=== PATIENT | male | born 1990 | race American Indian/Alaskan Native ===

== ENCOUNTER 2016-09-08 17:46 | Emergency (ER) | payer MEDICAID, OTHER ==
--- NOTE | 2016-09-08 18:35 | Emergency Department Report ---
Chief Complaint: Eye Problems Stated Complaint: LEFT EYE INJURY Time Seen by Provider: 09/08/16 18:32 - HPI History of Present Illness: pt states he was hit in L eye while at work yesterday. PT states today he is having eye redness - ROS Review of Systems: + eye pain + left eye lid edema - Exam Physical Exam: pt looks well, non toxic L eye injected MSE screening note: Focused history and physical exam performed. Due to findings the following was ordered: eye set up ED Disposition for MSE Condition: Stable
[2016-09-08 18:38] VITALS: BP 115/75
[2016-09-08] MEDS: TETRACAINE 0.5% OS STA (19:53)
[2016-09-08] MEDS: FUL-GLO OP ONE (19:53)
--- NOTE | 2016-09-08 20:08 | Emergency Department Report ---
ED Eye Problem HPI - General Chief complaint: Eye Problems Stated complaint: LEFT EYE INJURY Time Seen by Provider: 09/08/16 18:32 Source: patient Mode of arrival: Ambulatory Limitations: No Limitations - History of Present Illness Initial comments: This is a 25-year-old male that presents with left eye pain and blurred vision. Patient states that he hit his left eye while at work yesterday. Patient works in shipping toilets. Patient stated he was preparing a Box for a shipment and the corner of the box hit his left eye. Patient states pain is a 10 out of 10. Patient states that his eye is red and irritated. Patient denies any pus or drainage. Patient stated after the incident he washed his eye with normal saline flush. Patient denies any visual acuity. Patient denies any drug allergies. He seems well-nourished and nontoxic appearance. chief complaint: eye pain, eye redness, eye injury -: Sudden, days(s) (1) Onset Description: sudden Location: left eye Place: work If Injury: direct trauma Eye Symptoms: burning, redness, pain Severity: severe Severity scale (0 -10): 10 If Pain, Quality: sharp, burning, aching Consistency: constant Associated Symptoms: denies: headache, neck pain, nausea/vomiting, cough, rhinorrhea, fever, shortness of breath - Related Data Previous Rx's Medication Instructions Recorded Last Taken Type Ciprofloxacin HCl [Cipro] 500 mg PO BID #20 tablet 09/09/13 Unknown Rx HYDROcodone/APAP 5-325 [Sylvester 1 each PO Q6HR PRN #14 tablet 09/09/13 Unknown Rx 5/325 mg] Gentamicin 0.3% Ophth Soln 2 drops OP Q4H #1 bottle 09/08/16 Unknown Rx Tetracaine 0.5% [Tetravisc Forte 1 each OP Q5MIN PRN #1 drpr.hpvis 09/08/16 Unknown Rx 0.5%] Allergies Allergy/AdvReac Type Severity Reaction Status Date / Time coulter Allergy Swelling Uncoded 09/09/13 17:55 ED Review of Systems ROS: Stated complaint: LEFT EYE INJURY Other details as noted in HPI Constitutional: denies: chills, fever Eyes: eye pain (left eye). denies: eye discharge, vision change ENT: denies: ear pain, throat pain Respiratory: denies: cough, shortness of breath, wheezing Cardiovascular: denies: chest pain, palpitations Endocrine: no symptoms reported Gastrointestinal: denies: abdominal pain, nausea, diarrhea Genitourinary: denies: urgency, dysuria Musculoskeletal: denies: back pain, joint swelling, arthralgia Skin: denies: rash, lesions Neurological: denies: headache, weakness, paresthesias Psychiatric: denies: anxiety, depression Hematological/Lymphatic: denies: easy bleeding, easy bruising ED Past Medical Hx - Past Medical History Previous Medical History?: No - Surgical History Past Surgical History?: No - Social History Smoking Status: Current Some Day Smoker Substance Use Type: None - Medications Home Medications: Home Medications Medication Instructions Recorded Confirmed Last Taken Type Ciprofloxacin HCl [Cipro] 500 mg PO BID #20 tablet 09/09/13 Unknown Rx HYDROcodone/APAP 5-325 [Sylvester 1 each PO Q6HR PRN #14 tablet 09/09/13 Unknown Rx 5/325 mg] Gentamicin 0.3% Ophth Soln 2 drops OP Q4H #1 bottle 09/08/16 Unknown Rx Tetracaine 0.5% [Tetravisc Forte 1 each OP Q5MIN PRN #1 drpr.hpvis 09/08/16 Unknown Rx 0.5%] ED Physical Exam - General Limitations: No Limitations General appearance: alert, in no apparent distress - Head Head exam: Present: atraumatic, normocephalic - Eye Eye exam: Present: normal appearance, PERRL, EOMI. Absent: scleral icterus, conjunctival injection, nystagmus, periorbital swelling, periorbital tenderness Pupils: Present: normal accommodation - Expanded Eye Exam Expanded Eyelids: Normal Inspection: Left Pupils: Regular, Round: Left, Reactive: Left Sclera/Conjunctival: Normal Inspection: Left Posterior chamber: Normal Inspection: Left Visual acuity (R) = 20/: 40 (PT AWARE OF NEEDING GLASSES) Visual acuity (L) = 20/: 25 (PT AWARE OF NEEDING GLASSES) With correction: No - ENT ENT exam: Present: mucous membranes moist - Neck Neck exam: Present: normal inspection - Respiratory Respiratory exam: Present: normal lung sounds bilaterally. Absent: respiratory distress - Cardiovascular Cardiovascular Exam: Present: regular rate, normal rhythm. Absent: systolic murmur, diastolic murmur, rubs, gallop - GI/Abdominal GI/Abdominal exam: Present: soft, normal bowel sounds - Rectal Rectal exam: Present: deferred - Extremities Exam Extremities exam: Present: normal inspection - Back Exam Back exam: Present: normal inspection - Neurological Exam Neurological exam: Present: alert, oriented X3 - Psychiatric Psychiatric exam: Present: normal affect, normal mood - Skin Skin exam: Present: warm, dry, intact, normal color. Absent: rash ED Course Vital Signs 09/08/16 09/08/16 09/08/16 18:35 20:33 20:54 Temperature 98.1 F Pulse Rate 92 H 82 Respiratory 20 20 18 Rate Blood Pressure 115/75 O2 Sat by Pulse 100 Oximetry Vital Signs 09/08/16 09/08/16 18:35 20:33 Temperature 98.1 F Pulse Rate 92 H Respiratory 20 20 Rate Blood Pressure 115/75 O2 Sat by Pulse 100 Oximetry Vital Signs 09/08/16 09/08/16 09/08/16 18:35 20:33 20:54 Temperature 98.1 F Pulse Rate 92 H 82 Respiratory 20 20 18 Rate Blood Pressure 115/75 O2 Sat by Pulse 100 Oximetry - Procedure Description Procedures done: Exam using Boyer lamp. I used tetracaine 0.5% to affected eye with fluorescein strip. Under expected and I noticed patient has corneal abrasion. ED Medical Decision Making - Medical Decision Making ED course: 25-year-old male that presents with left corneal abrasion. 1- under Boyer lamp: Patient has left corneal abrasion. 2- cardinal IM given in the ER. 3- visual acuity tested. 4- I instructed the patient of the corneal abrasion. I instructed patient to follow-up with an hat steamer as soon as possible. 5- at the time of discharge the patient does not seem toxic or ill appearance. No signs of any distress. No further questions noted from the patient. 6- patient discharged with tetracaine ophthalmic solution 0.5 % and Cipro ophthalmic. Critical care attestation.: If time is entered above; I have spent that time in minutes in the direct care of this critically ill patient, excluding procedure time. ED Disposition Clinical Impression: Corneal abrasion Qualifiers: Encounter type: initial encounter Laterality: left Qualified Code(s): S05.02XA - Injury of conjunctiva and corneal abrasion without foreign body, left eye, initial encounter Disposition: DISCHARGED TO HOME OR SELFCARE Is pt being admited?: No Does the pt Need Aspirin: No Condition: Stable Instructions: Corneal Abrasion (ED) Additional Instructions: Follow-up with the hat steamer as soon as possible. If symptoms worsens report back to emergency room. Take medications as prescribed. Prescriptions: Tetracaine 0.5% [Tetravisc Forte 0.5%] 1 each OP Q5MIN PRN #1 drpr.hpvis PRN Reason: Pain Gentamicin 0.3% Ophth Soln 2 drops OP Q4H #1 bottle Referrals: PRIMARY CARE, [Primary Care Provider] - 3-5 Days JUSTIN DYE MD [Staff Physician] - [facility]
[2016-09-08] MEDS: TORADOL IM ONE (20:33)
== END 2016-09-08 21:05 | disposition home or self-care (01) ==
LOC: ED 17:46
DX: S05.02XA Injury of conjunctiva and corneal abrasion without foreign body, left eye, initial encounter (principal); F17.200 Nicotine dependence, unspecified, uncomplicated; Z91.018 Allergy to other foods; W22.8XXA Striking against or struck by other objects, initial encounter; Y93.89 Activity, other specified; Y99.0 Civilian activity done for income or pay; Y92.89 Other specified places as the place of occurrence of the external cause
CPT/HCPCS: 96372; 99283; J1885

== ENCOUNTER 2016-12-07 12:25 | Emergency (ER) | payer SELFPAY ==
[2016-12-07] MEDS ORDERED: TRIPLE ANTIBIOTIC TP ONE (18:25)
[2016-12-07 21:55] VITALS: BP 137/87
--- NOTE | 2016-12-07 22:03 | Emergency Department Report ---
Entered by TOMMY RAMOS, acting as scribe for CELESTINO BE NP. Abscess Boil HPI - HPI Chief Complaint: Skin/Abscess/Foreign Body Stated Complaint: POSSIBLE STAPH INFECTION Time Seen by Provider: 12/07/16 17:07 Duration: >1 Week (2) Location: Lower Extremity Severity: Moderate History: Yes Pain, Yes Purulent Drainage, No Fever, No Numbness, No Foreign Body , No Previous History, No Insect Bite HPI: This is a 26 year old male, nontoxic, well nourished in appearance, no acute signs of distress presents with open wound on left butt cheek for 2 weeks. Patient reports that he was sitting on the toilet when he noticed the symptoms worsened. Patient reports pus/drainage, but denies erythema, boil, chills, chest pain, SOB, numbness, or tingling. Patient denies chest pain, fever , chills, headache, stiff neck. NKDA. Denies PMH. Home Medications: Previous Rx's Medication Instructions Recorded Last Taken Type Ciprofloxacin HCl [Cipro] 500 mg PO BID #20 tablet 09/09/13 Unknown Rx HYDROcodone/APAP 5-325 [[place] 1 each PO Q6HR PRN #14 tablet 09/09/13 Unknown Rx 5/325 mg] Gentamicin 0.3% Ophth Soln 2 drops OP Q4H #1 bottle 09/08/16 Unknown Rx Tetracaine 0.5% [Tetravisc Forte 1 each OP Q5MIN PRN #1 drpr.hpvis 09/08/16 Unknown Rx 0.5%] Clindamycin [Clindamycin CAP] 450 mg PO Q8HR 7 Days 12/07/16 Unknown Rx Allergies/Adverse Reactions: Allergies Allergy/AdvReac Type Severity Reaction Status Date / Time coulter Allergy Swelling Uncoded 09/09/13 17:55 ED Review of Systems ROS: Stated complaint: POSSIBLE STAPH INFECTION Other details as noted in HPI Comment: All other systems reviewed and negative Constitutional: denies: chills, fever Eyes: denies: eye pain, eye discharge, vision change ENT: denies: ear pain, throat pain Respiratory: denies: cough, shortness of breath, wheezing Cardiovascular: denies: chest pain, palpitations Endocrine: no symptoms reported Gastrointestinal: denies: abdominal pain, nausea, diarrhea Genitourinary: denies: urgency, dysuria Musculoskeletal: denies: back pain, joint swelling, arthralgia Skin: denies: rash, lesions Neurological: denies: headache, weakness, paresthesias Psychiatric: denies: anxiety, depression Hematological/Lymphatic: denies: easy bleeding, easy bruising ED Past Medical Hx - Past Medical History Previous Medical History?: No - Social History Smoking Status: Current Some Day Smoker Substance Use Type: None - Medications Home Medications: Home Medications Medication Instructions Recorded Confirmed Last Taken Type Ciprofloxacin HCl [Cipro] 500 mg PO BID #20 tablet 09/09/13 Unknown Rx HYDROcodone/APAP 5-325 [[place] 1 each PO Q6HR PRN #14 tablet 09/09/13 Unknown Rx 5/325 mg] Gentamicin 0.3% Ophth Soln 2 drops OP Q4H #1 bottle 09/08/16 Unknown Rx Tetracaine 0.5% [Tetravisc Forte 1 each OP Q5MIN PRN #1 drpr.hpvis 09/08/16 Unknown Rx 0.5%] Clindamycin [Clindamycin CAP] 450 mg PO Q8HR 7 Days 12/07/16 Unknown Rx ED Abscess Boil Physical Exam - Exam General: Vital signs noted. No distress. Alert and acting appropriately. GENERAL: The patient is a well-developed, well-nourished female in no apparent distress. Patient is alert and acting appropriately for age. Alert and oriented 3, no apparent distress, normal gait, atraumatic. HEENT: Head is normocephalic and atraumatic. PERRL, Extraocular muscles are intact. Pupils are equal, round, and reactive to light and accommodation. Nares appeared normal. Mouth is well hydrated and without lesions. Mucous membranes are moist. Posterior pharynx clear of any exudate or lesions. Mouth is well hydrated and without lesions. Tonsils not erythematous or swollen. Uvula midline. Tongue elevated. Mucous members are moist. Posterior pharynx clear, no exudate or lesions. Patent airways. NECK: Supple. No carotid bruits. No lymphadenopathy or thyromegaly.nontender. No meningitic signs are noted. LUNGS: Clear to auscultation. Non labor breathing. No intercostal retractions. Symmetrical with respiration, no wheezing, no rales, or crackles. HEART: Regular rate and rhythm without murmur, rubs or gallops. No reproducible. S1, S2 present, regular rate and rhythm without murmur, no rubs, no gallops. ABDOMEN: Soft, nontender, and nondistended. Positive bowel sounds. No hepatosplenomegaly was noted. No guarding or rebound tenderness, negative epigastric bruit. Negative psoas sign, negative sahu sign, negative McBurneys sign EXTREMITIES: Without any cyanosis, clubbing, rash, lesions or edema. Peripheral pulses intact. Capillary refill less than 2 seconds. Full range of motion bilaterally. NEUROLOGIC: Cranial nerves II through XII are grossly intact. Alert and oriented x 3. Normal gait. Symmetrical strength and sensation. Reflexes 2+ throughout. Cerebellar testing normal. GCS score of 15. PSYCHIATRIC: Normal affect with no suicidal or homicidal ideations. Skin: 1cm x1 cm circular open wound with purulent drainage. No fluctuance present. No swelling. No surrounding cellulitis. No erythema. No ulcer. Front/Back of Body, Lg (Color): 1 - 1cm open round purulent drainage Size: 1 cm (1cm open round purulent drainage) Exam: Yes Tenderness, Yes Normal Neurologic Exam, Yes Normal Circulation, No Fluctuance, No Surrounding Cellulites/Erythema, No Lymphangitis, No Crepitation , No Heart Murmur Exam: 1cm open round purulent drainage ED Course Vital Signs 12/07/16 12:40 Temperature 97.4 F L Pulse Rate 82 Respiratory 16 Rate Blood Pressure 129/90 O2 Sat by Pulse 100 Oximetry - Reevaluation(s) Reevaluation #1: 12/07/16 18:23 Patient is speaking in full sentences with no signs of distress. Critical care attestation.: If time is entered above; I have spent that time in minutes in the direct care of this critically ill patient, excluding procedure time. ED Medical Decision Making - Medical Decision Making Ed course: This is a 26-year old male that presents with purulent open wound 1- patient was examined myself. I/D has been performed due to wound open with purulent drainage and no fluctuance present. 2- triple antibiotics ointment placed with 4 x 4 and tape at the time of discharge. 3- patient received clindamycin 7 days at discharge. 4- area has been marked with a permanent marker and patient was instructed to Follow-up with your primary care doctor in 3-5 days and observe symptoms and signs passing the permanent marked region and if increasing swelling, redness, pus, drainage, fever, chills, nausea, vomiting, chest pain or shortness of breath and return to emergency room if symptoms are present as soon as possible. 5- at time time of discharge, the patient does not seem toxic or ill in appearance. No acute signs of distress noted. Patient agrees to discharge treatment plan of care. No further questions noted by the patient. ED Disposition Clinical Impression: Open wound Disposition: DC-01 TO HOME OR SELFCARE Is pt being admited?: No Does the pt Need Aspirin: No Condition: Stable Instructions: Clindamycin (By mouth), Acute Wound Care (ED) Additional Instructions: Follow-up with your primary care doctor in 3-5 days and observe symptoms and signs passing the permanent marked region and if increasing swelling, redness, pus, drainage, fever, chills, nausea, vomiting, chest pain or shortness of breath and return to emergency room if symptoms are present as soon as possible. Take antibiotics as prescribed Keep area clean and dry. Prescriptions: Clindamycin [Clindamycin CAP] 450 mg PO Q8HR 7 Days Referrals: PRIMARY CAREMD [Primary Care Provider] - 3-5 Days GABE HUITRON JR, MD [Staff Physician] - 3-5 Days [facility] [Outside] - 3-5 Days [facility] [Outside] - 3-5 Days Forms: Work/School Release Form(ED) This documentation as recorded by the RICHARD avalos PEARL,accurately reflects the service I personally performed and the decisions made by ,CELESTINO BE, JOHNNIE.
== END 2016-12-07 21:55 | disposition home or self-care (01) ==
LOC: ED 12:25
DX: S31.829A Unspecified open wound of left buttock, initial encounter (principal); F17.200 Nicotine dependence, unspecified, uncomplicated; Z91.018 Allergy to other foods
CPT/HCPCS: 99282; 99283; A6250

== ENCOUNTER 2020-03-06 18:20 | Emergency (ER) | payer SELFPAY ==
--- NOTE | 2020-03-06 19:04 | XRay Report ---
CHEST 2 VIEWS INDICATION: MAIN. COMPARISON: None FINDINGS: SUPPORT DEVICES: None. HEART: Within normal limits. LUNGS/PLEURA: No acute air space or interstitial disease. No pneumothorax. ADDITIONAL FINDINGS: None. IMPRESSION: 1. No acute findings. Signer Name: Laith Kemp MD Signed: 03/06/2020 7:00 PM Workstation Name: [id number]
[2020-03-06 19:57] LABS: Alanine Aminotransferase 27 units/L (7-56); Albumin 4.5 g/dL (3.9-5); BUN/Creatinine Ratio 12; Blood Urea Nitrogen 11 mg/dL (9-20); Calcium 9.4 mg/dL (8.4-10.2); Hemolysis Index 10
[2020-03-06 20:05] LABS: Basophils % (Auto) 0.2 % (0.0-1.8); Eosinophils # (Auto) 0.5 K/mm3 (0.0-0.4); Eosinophils % (Auto) 2.8 % (0.0-4.3); Hematocrit 43.4 % (35.5-45.6); Hemoglobin 14.5 gm/dl (11.8-15.2); Lymphocytes # (Auto) 0.9 K/mm3 (1.2-5.4); Lymphocytes % (Auto) 5.5 % (13.4-35.0); Mean Corpuscular HGB Conc 33 % (32-34); Mean Corpuscular Volume 85 fl (84-94); Monocytes # (Auto) 1.4 K/mm3 (0.0-0.8); Monocytes % (Auto) 8.3 % (0.0-7.3); Platelet Count 168 K/mm3 (140-440); Red Blood Count 5.11 M/mm3 (3.65-5.03); Red Cell Distribution Width 13.7 % (13.2-15.2)
[2020-03-06] MEDS ORDERED: IBUPROFEN 600 MG TAB PO ONE (23:59)
[2020-03-06] MEDS ORDERED: IPRATROPIUM/ALBUTEROL SULFATE 3 ML AMPUL.NEB IH ONE (23:59)
[2020-03-06] MEDS ORDERED: ACETAMINOPHEN 325 MG TAB PO ONE (23:59)
[2020-03-06] MEDS ORDERED: predniSONE 20 MG TAB PO ONE (23:59)
--- NOTE | 2020-03-07 01:02 | Emergency Department Report ---
- General Chief Complaint: Upper Respiratory Infection Stated Complaint: HORACIO/WHEEZING/CHILLS Source: patient Mode of arrival: Ambulatory Limitations: No Limitations - History of Present Illness Initial Comments: Patient is a 29-year-old -[place] male with a history of chronic tobacco abuse who presents to the ED with complaint of acute onset persistent nasal and sinus congestion, frontal sinus pressure and headache, sore throat, persistent dry cough with wheezing and shortness of breath for the last 4 days. Patient states that he has been taking [id number] medications with no relief. Patient states that in the last 8 hours, his symptoms got worse and he developed persistent diffuse body aches and pains with chills. Patient states that his girlfriend also had similar symptoms. Patient denies chest pain, dizziness, syncope, fever, abdominal pain, nausea, vomiting, diarrhea, dysuria, urinary frequency and urgency, change in vision or hematuria. MD Complaint: cough, sore throat, rhinorrhea, nasal congestion, sinus pain -: days(s) (4) Severity: moderate Severity scale (0 -10): 5 Quality: sharp, aching Consistency: constant Improves With: nothing Worsens With: nothing Context: sick contacts Associated Symptoms: chills, myalgias, headache, rhinorrhea, nasal congestion, sore throat, cough, shortness of breath. denies: denies other symptoms, fever, diaphoresis, stiff neck, chest pain, abdominal pain, nausea, vomiting, rash, confusion, weight loss, epistaxis, hoarseness, ear pain, other Treatments Prior to Arrival: "cold medicine" - Related Data Previous Rx's Medication Instructions Recorded Last Taken Type Ciprofloxacin HCl [Cipro] 500 mg PO BID #20 tablet 09/09/13 Unknown Rx HYDROcodone/APAP 5-325 [[place] 1 each PO Q6HR PRN #14 tablet 09/09/13 Unknown Rx 5/325 mg] Gentamicin 0.3% Ophth Soln 2 drops OP Q4H #1 bottle 09/08/16 Unknown Rx Tetracaine 0.5% [Tetravisc Forte 1 each OP Q5MIN PRN #1 drpr.hpvis 09/08/16 Unknown Rx 0.5%] Clindamycin [Clindamycin CAP] 450 mg PO Q8HR 7 Days capsule 12/07/16 Unknown Rx Albuterol Sulfate [Proventil Hfa] 1 - 2 puff IH Q6H PRN #1 hfa.aer.ad 03/07/20 Unknown Rx Azithromycin [Zithromax Z-JACLYN] 250 mg PO DAILY #6 tablet 03/07/20 Unknown Rx Benzonatate [Tessalon Perles] 100 mg PO Q8HR #30 capsule 03/07/20 Unknown Rx Cetirizine HCl [Zyrtec 10mg tab] 10 mg PO DAILY #30 tablet 03/07/20 Unknown Rx Ibuprofen [Motrin] 800 mg PO Q8HR PRN #24 tablet 03/07/20 Unknown Rx predniSONE [Deltasone] 40 mg PO QDAY #12 tab 03/07/20 Unknown Rx Allergies Allergy/AdvReac Type Severity Reaction Status Date / Time coulter Allergy Swelling Uncoded 09/09/13 17:55 ED Review of Systems ROS: Stated complaint: HORACIO/WHEEZING/CHILLS Other details as noted in HPI Constitutional: denies: chills, fever Eyes: denies: eye pain, eye discharge, vision change ENT: throat pain, congestion, other (Frontal sinus congestion, pressure and headache). denies: ear pain Respiratory: cough, shortness of breath, wheezing Cardiovascular: denies: chest pain, palpitations Endocrine: no symptoms reported Gastrointestinal: denies: abdominal pain, nausea, vomiting, diarrhea Genitourinary: denies: urgency, dysuria, frequency, hematuria, discharge Musculoskeletal: arthralgia, myalgia. denies: back pain, joint swelling Skin: denies: rash, lesions Neurological: headache. denies: weakness, paresthesias Psychiatric: denies: anxiety, depression Hematological/Lymphatic: denies: easy bleeding, easy bruising ED Past Medical Hx - Past Medical History Previous Medical History?: No - Surgical History Past Surgical History?: No - Social History Smoking Status: Current Some Day Smoker Substance Use Type: None - Medications Home Medications: Home Medications Medication Instructions Recorded Confirmed Last Taken Type Ciprofloxacin HCl [Cipro] 500 mg PO BID #20 tablet 09/09/13 Unknown Rx HYDROcodone/APAP 5-325 [[place] 1 each PO Q6HR PRN #14 tablet 09/09/13 Unknown Rx 5/325 mg] Gentamicin 0.3% Ophth Soln 2 drops OP Q4H #1 bottle 09/08/16 Unknown Rx Tetracaine 0.5% [Tetravisc Forte 1 each OP Q5MIN PRN #1 drpr.hpvis 09/08/16 Unknown Rx 0.5%] Clindamycin [Clindamycin CAP] 450 mg PO Q8HR 7 Days capsule 12/07/16 Unknown Rx Albuterol Sulfate [Proventil Hfa] 1 - 2 puff IH Q6H PRN #1 hfa.aer.ad 03/07/20 Unknown Rx Azithromycin [Zithromax Z-JACLYN] 250 mg PO DAILY #6 tablet 03/07/20 Unknown Rx Benzonatate [Tessalon Perles] 100 mg PO Q8HR #30 capsule 03/07/20 Unknown Rx Cetirizine HCl [Zyrtec 10mg tab] 10 mg PO DAILY #30 tablet 03/07/20 Unknown Rx Ibuprofen [Motrin] 800 mg PO Q8HR PRN #24 tablet 03/07/20 Unknown Rx predniSONE [Deltasone] 40 mg PO QDAY #12 tab 03/07/20 Unknown Rx ED Physical Exam - General Limitations: No Limitations General appearance: alert, in no apparent distress - Head Head exam: Present: atraumatic, normocephalic, normal inspection - Eye Eye exam: Present: normal appearance, PERRL, EOMI Pupils: Present: normal accommodation - ENT ENT exam: Present: normal orophraynx, mucous membranes moist, TM's normal bilaterally, normal external ear exam, other (Grossly congested nasal passages; palpable frontal and maxillary sinus tenderness) - Neck Neck exam: Present: normal inspection, full ROM - Respiratory Respiratory exam: Present: wheezes (Diffuse coarse wheezes throughout). Absent: respiratory distress, rales, rhonchi, chest wall tenderness, accessory muscle use, decreased breath sounds - Cardiovascular Cardiovascular Exam: Present: normal rhythm, tachycardia, normal heart sounds. Absent: systolic murmur, diastolic murmur, rubs, gallop - GI/Abdominal GI/Abdominal exam: Present: soft, normal bowel sounds. Absent: tenderness, guarding, rebound, hyperactive bowel sounds, hypoactive bowel sounds, organomegaly - Extremities Exam Extremities exam: Present: normal inspection, full ROM, normal capillary refill - Back Exam Back exam: Present: normal inspection, full ROM. Absent: tenderness, CVA tenderness (R), CVA tenderness (L), muscle spasm, paraspinal tenderness, vertebral tenderness - Neurological Exam Neurological exam: Present: alert, oriented X3, CN II-XII intact, normal gait, reflexes normal - Psychiatric Psychiatric exam: Present: normal affect, normal mood - Skin Skin exam: Present: warm, dry, intact, normal color. Absent: rash ED Course Vital Signs 03/06/20 03/07/20 18:36 01:47 Temperature 99.8 F H 98.7 F Pulse Rate 113 H 100 H Respiratory 24 18 Rate Blood Pressure 152/66 150/78 [Right] O2 Sat by Pulse 94 100 Oximetry ED Medical Decision Making - Lab Data Result diagrams: 03/06/20 19:20 03/06/20 19:20 - Radiology Data Radiology results: report reviewed, image reviewed Findings [facility] [address] [place] [address] XRay Report Signed Patient: JONN THOMPSON MR# : [id number] : 1990 Acct:[id number] Age/Sex: 29 / M ADM Date: 03/06/20 Loc: ED Attending Dr: Ordering Physician: ED MD COLLIN Date of Service: 03/06/20 Procedure(s): XR chest routine 2V Accession Number(s): [id number] cc: ED MD COLLIN Fluoro Time In Minutes: CHEST 2 VIEWS INDICATION: MAIN. COMPARISON: None FINDINGS: SUPPORT DEVICES: None. HEART: Within normal limits. LUNGS/PLEURA: No acute air space or interstitial disease. No pneumothorax. ADDITIONAL FINDINGS: None. IMPRESSION: 1. No acute findings. Signer Name: Laith Kemp MD Signed: 03/06/2020 7:00 PM Workstation Name: [id number] Transcribed By: JW Dictated By: Laith Kemp MD Electronically Authenticated By: Laith Kemp MD Signed Date/Time: 03/06/201899 DD/ 57 TD/TT: - Medical Decision Making This is a 29-year-old -[place] male with a history of chronic tobacco abuse who presents to the ED with complaint of acute onset persistent nasal and sinus congestion, frontal sinus pressure and headache, sore throat, persistent dry cough with wheezing and shortness of breath for the last 4 days. Patient states that he has been taking [id number] medications with no relief. Patient states that in the last 8 hours, his symptoms got worse and he developed persistent diffuse body aches and pains with chills. Patient states that his girlfriend also had similar symptoms. In the ED, patient is alert and oriented x3 and is not in distress. Chest x-ray shows no acute cardiopulmonary abnormalities or pneumonitis. Lab test results were reviewed and showed acute leukocytosis of 16,300. Patient was treated in the ED with DuoNeb, also given oral steroids and pain medications. On reevaluation, patient felt better, wheezing resolved and patient was discharged home on medications and advised to follow-up with his primary care physician in 7 to 10 days for reevaluation or return to the ED immediately if symptoms get worse. Patient was also encouraged to consider quitting tobacco smoking dependence. - Differential Diagnosis Sinusitis; bronchitis; pneumonia; URI; pharyngitis; COVID-19 Critical care attestation.: If time is entered above; I have spent that time in minutes in the direct care of this critically ill patient, excluding procedure time. ED Disposition Clinical Impression: Acute non-recurrent frontal sinusitis, Acute upper respiratory infection Acute bronchitis Qualifiers: Bronchitis organism: unspecified organism Qualified Code(s): J20.9 - Acute bronchitis, unspecified Disposition: DC-01 TO HOME OR SELFCARE Is pt being admited?: No Does the pt Need Aspirin: No Condition: Stable Instructions: Sinusitis (ED), Upper Respiratory Infection (ED), Acute Bronchitis (ED) Additional Instructions: Chest x-ray showed no acute cardiopulmonary abnormalities or pneumonitis. Lab test results were reviewed and are all nonactionable. Therefore take medications with food, drink plenty of fluids and follow-up with your primary care physician in 5 to 7 days for reevaluation. Return to the ED immediately if symptoms get worse. Prescriptions: predniSONE [Deltasone] 40 mg PO QDAY #12 tab Ibuprofen [Motrin] 800 mg PO Q8HR PRN #24 tablet PRN Reason: Pain , Severe (7-10) Albuterol Sulfate [Proventil Hfa] 1 - 2 puff IH Q6H PRN #1 hfa.aer.ad PRN Reason: Wheezing Benzonatate [Tessalon Perles] 100 mg PO Q8HR #30 capsule Azithromycin [Zithromax Z-JACLYN] 250 mg PO DAILY #6 tablet Cetirizine HCl [Zyrtec 10mg tab] 10 mg PO DAILY #30 tablet Referrals: [facility] [Provider Group] - 3-5 Days Forms: Work/School Release Form(ED) Time of Disposition: 01:08 Print Language: THAI
[2020-03-07 01:49] VITALS: BP 150/78
== END 2020-03-07 01:47 | disposition home or self-care (01) ==
LOC: ED 18:20
DX: J20.9 Acute bronchitis, unspecified (principal); J06.9 Acute upper respiratory infection, unspecified; J01.10 Acute frontal sinusitis, unspecified
CPT/HCPCS: 36415; 71046; 80053; 85025; 99284; J7512